=== PATIENT | male | born 1940 | race Caucasian/White ===

== ENCOUNTER 2016-10-17 13:27 | Inpatient (IN) | payer MEDICARE, MEDICAID ==
[~2016-10-17] VITALS: Ht 172.7 cm; Wt 53.6 kg
[~2016-10-17 13:27] MED LIST: AMLO2.5T PO; ESCI10TA PO; FERR-89 PO; LEVO500 PO; LISI-660 PO; TRAZ-144 PO
[2016-10-17 13:57] LABS: EOSINOPHILS # (AUTO) 0.09 K/uL (0.00-0.70); EOSINOPHILS % (AUTO) 1.62 % (1.0-6.0); HEMATOCRIT 34.1 % (41-53); HEMOGLOBIN 10.9 g/dL (13.5-17.5); LYMPHOCYTES # (AUTO) 0.9 K/uL (1.0-4.8); LYMPHOCYTES % (AUTO) 15.6 % (22.0-44.0); MEAN CORPUSCULAR HGB CONC 32.1 G/dL (31.0-37.0); MEAN CORPUSCULAR VOLUME 87 fL (80-100); MONOCYTES # (AUTO) 0.5 K/uL (0.1-1.0); MONOCYTES % (AUTO) 8.9 % (2.0-9.0); NEUTROPHILS # (AUTO) 4.3 K/uL (1.8-7.7); NEUTROPHILS % (AUTO) 73.9 % (40.0-70.0); PLATELET COUNT (AUTO) 241 K/uL (150-450); RED BLOOD CELL COUNT(AUTO) 3.91 MIL/uL (4.50-5.90); RED CELL DISTRIBUTION WIDTH 14.1 % (11.5-14.5); WHITE BLOOD COUNT (AUTO) 5.8 K/uL (4.5-11.0)
[2016-10-17 14:08] LABS: ANION GAP 8 mmol/L (8-16); CALCIUM, TOTAL 8.7 mg/dL (8.8-10.5); CARBON DIOXIDE 25 mmol/L (22-29); CHLORIDE 105 mmol/L (98-107); CREATININE 1.39 mg/dL (0.60-1.30); GLOMERULAR FILTR. RATE CALC 50 mL/min (>60); POTASSIUM 4.4 mmol/L (3.5-5.1); SODIUM SERUM 138 mmol/L (136-145); UREA NITROGEN, BLOOD 42 mg/dL (7-18)
[2016-10-17 14:13] LABS: ALANINE AMINOTRANSFERASE 34 U/L (12-78); ALBUMIN 2.7 g/dL (3.4-5.0); ASPARTATE AMINOTRANSFERASE 49 U/L (15-37); BILIRUBIN,TOTAL 0.3 mg/dL (0.1-1.0); TOTAL PROTEIN, SERUM 7.8 g/dL (6.4-8.2)
[2016-10-17] MEDS ORDERED: ZOLPIDEM TARTRATE 10 MG TABLET PO PRN (15:30)
[2016-10-17] MEDS: LORazepam 2 MG TABLET PO PRN ×2 (16:02→21:24)
[2016-10-17] MEDS: HALOPERIDOL 5 MG TABLET PO PRN ×2 (16:02→21:25)
[2016-10-18] MEDS ORDERED: DiphenhydrAMINE HCL 50 MG CAPSULE PO ONE (00:45)
[2016-10-18] MEDS: LORazepam 2 MG TABLET PO PRN ×3 (09:47→22:32)
[2016-10-18] MEDS: HALOPERIDOL 5 MG TABLET PO PRN ×2 (09:47→17:10)
[2016-10-18] MEDS ORDERED: LISI-662 PO (16:25)
[2016-10-18] MEDS ORDERED: AMLO-512 PO (16:25)
[2016-10-18 16:30] VITALS: BP 145/80
[2016-10-18] MEDS ORDERED: INFLUENZA VIRUS VACCINE QVS 2016-17 (3YR+)/PF 60 MCG/0.5 ML SYRINGE IM ONE (16:30)
[2016-10-18 19:24] VITALS: BP 142/85
[2016-10-19 01:56] VITALS: BP 158/88
[2016-10-19 06:21] LABS: GLUCOSE,POINT OF CARE 75 MG/DL (70-110)
[2016-10-19] MEDS ORDERED: ALBUTEROL SULFATE 2.5 MG/0.5 ML NEB SOLUTION NEB PRN (07:00)
[2016-10-19 08:00] VITALS: BP 149/97
[2016-10-19] MEDS ORDERED: OXYGEN THERAPY IH SCH (08:00)
[2016-10-19] MEDS ORDERED: LISINOPRIL 20 MG TABLET PO SCH (09:00)
[2016-10-19] MEDS ORDERED: AmLODIPine BESYLATE 5 MG TABLET PO SCH (09:00)
[2016-10-19] MEDS ORDERED: MULTIVITAMINS WITH IRON TABLET PO SCH (09:00)
== END 2016-10-19 10:04 | disposition short-term general hospital (02) | DRG 885 ==
LOC: EMS 13:29 → EEVIPCON 13:29 → AHU 10-18 14:20 → 3EI 10-18 18:41
PROVIDERS: ADMIT Psychiatry & Neurology Child & Adolescent Psychiatry; ATTEND Psychiatry & Neurology Child & Adolescent Psychiatry
DX: F33.3 Major depressive disorder, recurrent, severe with psychotic symptoms (principal); J18.9 Pneumonia, unspecified organism; R45.851 Suicidal ideations; I42.9 Cardiomyopathy, unspecified; I50.9 Heart failure, unspecified; I11.0 Hypertensive heart disease with heart failure; F15.90 Other stimulant use, unspecified, uncomplicated; F12.90 Cannabis use, unspecified, uncomplicated; F11.90 Opioid use, unspecified, uncomplicated; E78.00 Pure hypercholesterolemia, unspecified; D64.9 Anemia, unspecified; F17.200 Nicotine dependence, unspecified, uncomplicated; S91.309A Unspecified open wound, unspecified foot, initial encounter; Z88.0 Allergy status to penicillin; Z79.899 Other long term (current) drug therapy; X58.XXXA Exposure to other specified factors, initial encounter; Y93.89 Activity, other specified; Y92.89 Other specified places as the place of occurrence of the external cause; Y99.8 Other external cause status
CPT/HCPCS: 71020; 82962; 93005; 93306; 99285; G0480

== ENCOUNTER 2016-10-19 10:00 | Inpatient (IN) | payer OTHER, MEDICAID ==
[~2016-10-19 10:00] MED LIST changes: +AMLO-512 PO; -AMLO2.5T PO; -LEVO500 PO; -LISI-660 PO; +LISI-662 PO
[2016-10-19 10:50] VITALS: BP 148/93
[2016-10-19] MEDS ORDERED: ZOLPIDEM TARTRATE 10 MG TABLET PO PRN (11:00)
[2016-10-19] MEDS ORDERED: ALBUTEROL SULFATE 2.5 MG/0.5 ML NEB SOLUTION NEB PRN (11:00)
[2016-10-19] MEDS ORDERED: LORazepam 2 MG TABLET PO PRN (11:00)
[2016-10-19 11:20] LABS: ABG A-A DIFF O2 94.7 mmHg (10-20.0); ABG BASE EXCESS -5.5 mmol/L (-2.0-3.0); ABG HCO3 20.8 mmol/L (22.0-26.0); ABG OXYHEMOGLOBIN 93.4 % (94.0-100.0); ABG PCO2 27 mmHg (35-45)
[2016-10-19] MEDS ORDERED: HEPARIN SODIUM,PORCINE 5,000 UNITS/ML VIAL SQ SCH (11:45)
[2016-10-19] MEDS ORDERED: ONDANSETRON HCL 4 MG/2 ML VIAL IVP PRN (11:45)
[2016-10-19] MEDS ORDERED: BISACODYL 10 MG RECTAL RECTAL SUPPOSITORY PR PRN (11:45)
[2016-10-19] MEDS ORDERED: MAGNESIUM HYDROXIDE SUSPENSION 30 ML UDCUP PO PRN (11:45)
[2016-10-19] MEDS: FUROSEMIDE 20 MG/2 ML VIAL IVP SCH ×2 (12:02→21:13)
[2016-10-19] MEDS: LORazepam 2 MG/ML VIAL IVP PRN ×3 (12:02→21:39)
[2016-10-19] MEDS ORDERED: *CLINICAL-LEVOFLOXACIN IVPB DOSING CLINICAL ONE ×2 (12:15)
[2016-10-19] MEDS: CARVEDILOL 3.125 MG TABLET PO SCH ×3 (13:00→21:16)
[2016-10-19] MEDS: LEVOFLOXACIN 750 MG/D5% WATER 150 ML IV SCH (13:00)
[2016-10-19] MEDS: IPRATROPIUM BROMIDE 0.5 MG/2.5 ML NEB SOLUTION NEB SCH ×3 (14:35→22:32)
[2016-10-19] MEDS: ALBUTEROL SULFATE 2.5 MG/0.5 ML NEB SOLUTION NEB SCH ×3 (14:35→22:32)
[2016-10-19 14:51] VITALS: BP 136/83
[2016-10-19] MEDS ORDERED: SODIUM CHLORIDE 0.9% 250 ML IV ONE (15:00)
[2016-10-19 15:04] LABS: CALCIUM, TOTAL 8.9 mg/dL (8.8-10.5); CREATINE KINASE MB 14.3 ng/mL (0-5); CREATININE 1.68 mg/dL (0.60-1.30); POTASSIUM 4.6 mmol/L (3.5-5.1)
[2016-10-19] MEDS ORDERED: HEPARIN SODIUM,PORCINE 5,000 UNITS/ML VIAL IVP PRN ×2 (15:45)
[2016-10-19] MEDS ORDERED: HEPARIN SODIUM,PORCINE 5,000 UNITS/ML VIAL IVP ONE (15:45)
[2016-10-19 17:00] VITALS: BP 110/77
[2016-10-19 17:36] LABS: BASOPHILS % (AUTO) 0.2 % (0.0-2.0); EOSINOPHILS % (AUTO) 0 % (1.0-6.0); HEMATOCRIT 25.6 % (41-53); LYMPHOCYTES # (AUTO) 0.6 K/uL (1.0-4.8); MEAN CORPUSCULAR HEMOGLOBIN 27.6 pg (26.0-34.0); MEAN CORPUSCULAR HGB CONC 31.2 G/dL (31.0-37.0); MEAN CORPUSCULAR VOLUME 89 fL (80-100); MONOCYTES # (AUTO) 0.5 K/uL (0.1-1.0); MONOCYTES % (AUTO) 8.6 % (2.0-9.0); NEUTROPHILS # (AUTO) 4.7 K/uL (1.8-7.7); NEUTROPHILS % (AUTO) 81.2 % (40.0-70.0); PLATELET COUNT (AUTO) 182 K/uL (150-450); RED BLOOD CELL COUNT(AUTO) 2.89 MIL/uL (4.50-5.90); RED CELL DISTRIBUTION WIDTH 15.6 % (11.5-14.5); WHITE BLOOD COUNT (AUTO) 5.8 K/uL (4.5-11.0)
[2016-10-19 17:53] LABS: INR 1.4 (0.9-1.1); PROTHROMBIN TIME 14.9 SEC (9.4-11.6)
[2016-10-19] MEDS: HEPARIN SODIUM 25000 UNITS/D5W 250 ML IV PRN (18:48)
[2016-10-19 20:30] VITALS: BP 110/72
[2016-10-19] MEDS: OXYGEN THERAPY IH SCH (21:00)
[2016-10-19] MEDS: AmLODIPine BESYLATE 5 MG TABLET PO SCH ×2 (21:00→21:16)
[2016-10-20] VITALS (7 sets, daily range): BP systolic 110–143; BP diastolic 71–96
[2016-10-20] MEDS: LORazepam 2 MG/ML VIAL IVP PRN ×2 (02:06→06:40)
[2016-10-20] MEDS: ALBUTEROL SULFATE 2.5 MG/0.5 ML NEB SOLUTION NEB SCH ×6 (03:21→22:46)
[2016-10-20] MEDS: IPRATROPIUM BROMIDE 0.5 MG/2.5 ML NEB SOLUTION NEB SCH ×6 (03:21→22:46)
[2016-10-20] MEDS: HALOPERIDOL 5 MG TABLET PO PRN ×3 (03:22→22:57)
[2016-10-20] MEDS: HEPARIN SODIUM 25000 UNITS/D5W 250 ML IV PRN ×2 (04:34→09:32)
[2016-10-20] MEDS ORDERED: 0.9% SODIUM CHLORIDE 10 ML SYRINGE IVP PRN (05:45)
[2016-10-20 06:48] LABS: VITAMIN B12 LEVEL 334 pg/mL (211-911)
[2016-10-20 07:08] LABS: APPEARANCE,URINE CLEAR (CLEAR); GLUCOSE, URINE (UA) NEGATIVE (NEGATIVE); KETONES,URINE NEGATIVE (NEGATIVE); LEUKOCYTE ESTERASE ,URINE NEGATIVE (NEGATIVE); OCCULT BLOOD,URINE MODERATE (NEGATIVE); PH,URINE 5.5 (5.0-8.0); PROTEIN,URINE SEE CONFIRM (NEGATIVE)
[2016-10-20 07:13] LABS: ADD UA MICROSCOPIC YES
[2016-10-20 07:14] LABS: SQUAMOUS EPITHELIAL CELL,UR Few /LPF (None Seen); SULFOSALICYLIC ACID,URINE 2+ (Negative); WBC,URINE 0-2 /HPF (0-5)
[2016-10-20 07:26] LABS: EOSINOPHILS # (AUTO) 0.01 K/uL (0.00-0.70); EOSINOPHILS % (AUTO) 0.06 % (1.0-6.0); HEMATOCRIT 30.8 % (41-53); LYMPHOCYTES % (AUTO) 10.9 % (22.0-44.0); MEAN CORPUSCULAR HEMOGLOBIN 28.3 pg (26.0-34.0); MEAN CORPUSCULAR HGB CONC 32.5 G/dL (31.0-37.0); MEAN CORPUSCULAR VOLUME 87 fL (80-100); MONOCYTES # (AUTO) 0.8 K/uL (0.1-1.0); MONOCYTES % (AUTO) 9.2 % (2.0-9.0); NEUTROPHILS # (AUTO) 6.9 K/uL (1.8-7.7); NEUTROPHILS % (AUTO) 79.8 % (40.0-70.0); PLATELET COUNT (AUTO) 221 K/uL (150-450); RED BLOOD CELL COUNT(AUTO) 3.54 MIL/uL (4.50-5.90); RED CELL DISTRIBUTION WIDTH 15.7 % (11.5-14.5); WHITE BLOOD COUNT (AUTO) 8.7 K/uL (4.5-11.0)
[2016-10-20 07:41] LABS: HEMOGLOBIN A1C 5.9 % (4.5-6.2)
[2016-10-20 07:58] LABS: ALBUMIN 2.3 g/dL (3.4-5.0); BILIRUBIN,TOTAL 0.5 mg/dL (0.1-1.0); CALCIUM, TOTAL 8.5 mg/dL (8.8-10.5); CHOL/HDL RATIO 2.4 (4.2-7.3); CREATININE 1.85 mg/dL (0.60-1.30); MAGNESIUM 2.2 mg/dL (1.80-2.40); POTASSIUM 4.4 mmol/L (3.5-5.1); THYROID STIMULATING HORMONE 4.17 uIU/mL (0.36-3.74); TOTAL PROTEIN, SERUM 6.7 g/dL (6.4-8.2)
[2016-10-20] MEDS: AmLODIPine BESYLATE 5 MG TABLET PO SCH ×2 (08:38→21:00)
[2016-10-20] MEDS: CLOPIDOGREL BISULFATE 75 MG TABLET PO SCH (08:38)
[2016-10-20] MEDS: FUROSEMIDE 20 MG/2 ML VIAL IVP SCH ×2 (08:38→21:00)
[2016-10-20] MEDS: MULTIVITAMINS WITH IRON TABLET PO SCH (08:39)
[2016-10-20] MEDS: PANTOPRAZOLE SODIUM 40 MG/VIAL IVP SCH (08:39)
[2016-10-20] MEDS: OXYGEN THERAPY IH SCH ×2 (08:39→20:58)
[2016-10-20] MEDS ORDERED: LISINOPRIL 20 MG TABLET PO SCH (09:00)
[2016-10-20] MEDS: CARVEDILOL 6.25 MG TABLET PO SCH ×2 (09:17→21:00)
[2016-10-21] MEDS: ALBUTEROL SULFATE 2.5 MG/0.5 ML NEB SOLUTION NEB SCH ×4 (02:31→14:16)
[2016-10-21] MEDS: IPRATROPIUM BROMIDE 0.5 MG/2.5 ML NEB SOLUTION NEB SCH ×6 (02:31→23:59)
[2016-10-21] MEDS: HALOPERIDOL 5 MG TABLET PO PRN ×2 (04:28→08:48)
[2016-10-21 05:20] VITALS: BP 116/74
[2016-10-21] MEDS ORDERED: LORA-192 PO (05:43)
[2016-10-21] MEDS ORDERED: FURO20TA4 PO (05:43)
[2016-10-21] MEDS ORDERED: CARV3.1231 PO (05:43)
[2016-10-21] MEDS ORDERED: HYDR12.530 PO (05:44)
[2016-10-21 06:54] LABS: ALBUMIN 2.4 g/dL (3.4-5.0); BILIRUBIN,TOTAL 0.5 mg/dL (0.1-1.0); CREATININE 1.86 mg/dL (0.60-1.30); MAGNESIUM 2.4 mg/dL (1.80-2.40); PHOSPHORUS 5.4 mg/dL (2.5-4.9); POTASSIUM 4.9 mmol/L (3.5-5.1); TOTAL PROTEIN, SERUM 6.9 g/dL (6.4-8.2)
[2016-10-21 06:55] LABS: EOSINOPHILS % (AUTO) 0.1 % (1.0-6.0); HEMATOCRIT 33.1 % (41-53); HEMOGLOBIN 10.5 g/dL (13.5-17.5); LYMPHOCYTES # (AUTO) 0.4 K/uL (1.0-4.8); LYMPHOCYTES % (AUTO) 5.8 % (22.0-44.0); MEAN CORPUSCULAR HGB CONC 31.8 G/dL (31.0-37.0); MEAN CORPUSCULAR VOLUME 88 fL (80-100); MONOCYTES # (AUTO) 0.4 K/uL (0.1-1.0); NEUTROPHILS # (AUTO) 6.8 K/uL (1.8-7.7); PLATELET COUNT (AUTO) 212 K/uL (150-450); RED BLOOD CELL COUNT(AUTO) 3.77 MIL/uL (4.50-5.90); RED CELL DISTRIBUTION WIDTH 14.8 % (11.5-14.5); WHITE BLOOD COUNT (AUTO) 7.7 K/uL (4.5-11.0)
[2016-10-21 06:57] LABS: NEUTROPHILS % (AUTO) 89.1 % (40.0-70.0)
[2016-10-21 07:05] VITALS: BP 137/59
[2016-10-21] MEDS: OXYGEN THERAPY IH SCH ×2 (07:14→21:04)
[2016-10-21] MEDS: MULTIVITAMINS WITH IRON TABLET PO SCH (08:48)
[2016-10-21] MEDS: CLOPIDOGREL BISULFATE 75 MG TABLET PO SCH (08:48)
[2016-10-21] MEDS: PANTOPRAZOLE SODIUM 40 MG/VIAL IVP SCH (08:48)
[2016-10-21] MEDS: CARVEDILOL 6.25 MG TABLET PO SCH ×2 (08:48→21:05)
[2016-10-21] MEDS: AmLODIPine BESYLATE 5 MG TABLET PO SCH ×2 (08:48→21:05)
[2016-10-21] MEDS: FUROSEMIDE 20 MG/2 ML VIAL IVP SCH ×2 (08:48→21:05)
[2016-10-21 10:17] LABS: HEPATITIS Bs ANTIGEN SCREEN P Negative (Negative); HEPATITIS C AB SCREEN >11.0 s/co ratio (0.0-0.9)
[2016-10-21 11:00] VITALS: BP 100/69
[2016-10-21 15:02] VITALS: BP 116/70
[2016-10-21] MEDS ORDERED: GABAPENTIN 100 MG CAPSULE PO SCH (15:45)
[2016-10-21] MEDS: LEVOFLOXACIN 750 MG/D5% WATER 150 ML IV SCH (16:36)
[2016-10-21 19:47] VITALS: BP 112/64
[2016-10-21 23:52] VITALS: BP 111/65
[2016-10-22] MEDS: HALOPERIDOL 5 MG TABLET PO PRN (01:12)
[2016-10-22] MEDS ORDERED: CILO50TA PO (02:42)
[2016-10-22] MEDS: IPRATROPIUM BROMIDE 0.5 MG/2.5 ML NEB SOLUTION NEB SCH ×6 (03:00→23:00)
[2016-10-22 04:07] VITALS: BP 115/79
[2016-10-22 06:19] LABS: EOSINOPHILS % (AUTO) 0.1 % (1.0-6.0); HEMATOCRIT 31.4 % (41-53); LYMPHOCYTES # (AUTO) 0.7 K/uL (1.0-4.8); LYMPHOCYTES % (AUTO) 9.6 % (22.0-44.0); MEAN CORPUSCULAR HEMOGLOBIN 28.1 pg (26.0-34.0); MEAN CORPUSCULAR HGB CONC 31.9 G/dL (31.0-37.0); MEAN CORPUSCULAR VOLUME 88 fL (80-100); MONOCYTES # (AUTO) 0.5 K/uL (0.1-1.0); MONOCYTES % (AUTO) 6.6 % (2.0-9.0); NEUTROPHILS # (AUTO) 6.2 K/uL (1.8-7.7); NEUTROPHILS % (AUTO) 83.7 % (40.0-70.0); PLATELET COUNT (AUTO) 186 K/uL (150-450); RED BLOOD CELL COUNT(AUTO) 3.57 MIL/uL (4.50-5.90); RED CELL DISTRIBUTION WIDTH 15.3 % (11.5-14.5); WHITE BLOOD COUNT (AUTO) 7.4 K/uL (4.5-11.0)
[2016-10-22] MEDS: OXYGEN THERAPY IH SCH ×2 (07:22→20:33)
[2016-10-22 07:27] VITALS: BP 139/73
[2016-10-22 07:28] LABS: ALBUMIN 2.1 g/dL (3.4-5.0); BILIRUBIN,TOTAL 0.4 mg/dL (0.1-1.0); CALCIUM, TOTAL 8.7 mg/dL (8.8-10.5); CREATINE KINASE MB 6.2 ng/mL (0-5); CREATININE 2.11 mg/dL (0.60-1.30); MAGNESIUM 2.3 mg/dL (1.80-2.40); PHOSPHORUS 5.1 mg/dL (2.5-4.9); POTASSIUM 4.3 mmol/L (3.5-5.1); TOTAL PROTEIN, SERUM 6.4 g/dL (6.4-8.2)
[2016-10-22] MEDS: CLOPIDOGREL BISULFATE 75 MG TABLET PO SCH (08:32)
[2016-10-22] MEDS: CARVEDILOL 6.25 MG TABLET PO SCH ×2 (08:32→20:19)
[2016-10-22] MEDS: PANTOPRAZOLE SODIUM 40 MG/VIAL IVP SCH (08:32)
[2016-10-22] MEDS: MULTIVITAMINS WITH IRON TABLET PO SCH (08:32)
[2016-10-22] MEDS: AmLODIPine BESYLATE 5 MG TABLET PO SCH ×2 (08:32→20:17)
[2016-10-22] MEDS: FUROSEMIDE 20 MG/2 ML VIAL IVP SCH (08:33)
[2016-10-22] MEDS ORDERED: LISINOPRIL 5 MG TABLET PO SCH (09:00)
[2016-10-22 11:18] VITALS: BP 98/56
[2016-10-22 15:42] VITALS: BP 102/65
[2016-10-22 19:36] VITALS: BP 101/53
[2016-10-22 23:17] VITALS: BP 96/59
[2016-10-22 23:34] LABS: APPEARANCE,UNSPUN,BODY FLUID SLIGHTLY CLOUDY (CLEAR)
[2016-10-22 23:35] LABS: COLOR,BODY FLUID YELLOW (LT YELLOW)
[2016-10-22 23:36] LABS: OTHER CELLS,BODY FLUID MACROPHAGES
[2016-10-22 23:37] LABS: PH, BODY FLUID 7
[2016-10-23] MEDS: IPRATROPIUM BROMIDE 0.5 MG/2.5 ML NEB SOLUTION NEB SCH ×6 (03:00→23:00)
[2016-10-23 05:01] VITALS: BP 119/68
[2016-10-23 06:48] LABS: BASOPHILS % (AUTO) 0.1 % (0.0-2.0); EOSINOPHILS % (AUTO) 0.2 % (1.0-6.0); HEMATOCRIT 31.4 % (41-53); HEMOGLOBIN 10.2 g/dL (13.5-17.5); LYMPHOCYTES # (AUTO) 0.7 K/uL (1.0-4.8); LYMPHOCYTES % (AUTO) 8.5 % (22.0-44.0); MEAN CORPUSCULAR HEMOGLOBIN 28.2 pg (26.0-34.0); MEAN CORPUSCULAR HGB CONC 32.4 G/dL (31.0-37.0); MEAN CORPUSCULAR VOLUME 87 fL (80-100); MONOCYTES # (AUTO) 0.5 K/uL (0.1-1.0); MONOCYTES % (AUTO) 6.1 % (2.0-9.0); NEUTROPHILS # (AUTO) 6.7 K/uL (1.8-7.7); NEUTROPHILS % (AUTO) 85.1 % (40.0-70.0); PLATELET COUNT (AUTO) 182 K/uL (150-450); RED BLOOD CELL COUNT(AUTO) 3.61 MIL/uL (4.50-5.90); RED CELL DISTRIBUTION WIDTH 14.8 % (11.5-14.5); WHITE BLOOD COUNT (AUTO) 7.9 K/uL (4.5-11.0)
[2016-10-23 07:20] VITALS: BP 132/72
[2016-10-23 07:38] LABS: ALBUMIN 2.3 g/dL (3.4-5.0); BILIRUBIN,TOTAL 0.4 mg/dL (0.1-1.0); CALCIUM, TOTAL 8.3 mg/dL (8.8-10.5); CREATININE 2.21 mg/dL (0.60-1.30); MAGNESIUM 2.3 mg/dL (1.80-2.40); PHOSPHORUS 4.5 mg/dL (2.5-4.9); TOTAL PROTEIN, SERUM 6.6 g/dL (6.4-8.2)
[2016-10-23] MEDS: OXYGEN THERAPY IH SCH ×2 (08:00→20:00)
[2016-10-23] MEDS: CLOPIDOGREL BISULFATE 75 MG TABLET PO SCH (09:40)
[2016-10-23] MEDS: PANTOPRAZOLE SODIUM 40 MG/VIAL IVP SCH (09:40)
[2016-10-23] MEDS: CARVEDILOL 6.25 MG TABLET PO SCH ×2 (09:40→20:20)
[2016-10-23] MEDS: MULTIVITAMINS WITH IRON TABLET PO SCH (09:41)
[2016-10-23] MEDS: AmLODIPine BESYLATE 5 MG TABLET PO SCH ×2 (09:41→20:19)
[2016-10-23 11:17] VITALS: BP 130/68
[2016-10-23] MEDS: LEVOFLOXACIN 750 MG/D5% WATER 150 ML IV SCH (12:29)
[2016-10-23 16:30] VITALS: BP 139/72
[2016-10-23] MEDS ORDERED: SODIUM CHLORIDE 0.9% 100 ML ONE (20:00)
[2016-10-23] MEDS: ALBUMIN HUMAN 25%-25GM/100ML 100 ML IV SCH (20:19)
[2016-10-23 20:23] VITALS: BP 98/54
[2016-10-24] VITALS: BP 123/73
[2016-10-24] MEDS: IPRATROPIUM BROMIDE 0.5 MG/2.5 ML NEB SOLUTION NEB SCH ×7 (03:00→23:00)
[2016-10-24] MEDS: ALBUMIN HUMAN 25%-25GM/100ML 100 ML IV SCH ×2 (04:32→13:45)
[2016-10-24 05:00] VITALS: BP 129/75
[2016-10-24 07:02] LABS: EOSINOPHILS % (AUTO) 0 % (1.0-6.0); HEMATOCRIT 28.4 % (41-53); HEMOGLOBIN 9.3 g/dL (13.5-17.5); LYMPHOCYTES # (AUTO) 0.4 K/uL (1.0-4.8); LYMPHOCYTES % (AUTO) 4.8 % (22.0-44.0); MEAN CORPUSCULAR HEMOGLOBIN 28.2 pg (26.0-34.0); MEAN CORPUSCULAR HGB CONC 32.7 G/dL (31.0-37.0); MEAN CORPUSCULAR VOLUME 86 fL (80-100); MONOCYTES # (AUTO) 0.4 K/uL (0.1-1.0); MONOCYTES % (AUTO) 5.2 % (2.0-9.0); NEUTROPHILS # (AUTO) 7.2 K/uL (1.8-7.7); PLATELET COUNT (AUTO) 140 K/uL (150-450); RED BLOOD CELL COUNT(AUTO) 3.29 MIL/uL (4.50-5.90); RED CELL DISTRIBUTION WIDTH 14.5 % (11.5-14.5)
[2016-10-24 07:04] LABS: NEUTROPHILS % (AUTO) 90.1 % (40.0-70.0)
[2016-10-24 07:45] VITALS: BP 112/70
[2016-10-24 07:48] LABS: ALBUMIN 3.2 g/dL (3.4-5.0); BILIRUBIN,TOTAL 0.6 mg/dL (0.1-1.0); CALCIUM, TOTAL 8.6 mg/dL (8.8-10.5); CREATININE 1.81 mg/dL (0.60-1.30); MAGNESIUM 2.4 mg/dL (1.80-2.40); POTASSIUM 3.7 mmol/L (3.5-5.1)
[2016-10-24] MEDS: OXYGEN THERAPY IH SCH ×2 (08:00→20:00)
[2016-10-24] MEDS: CARVEDILOL 6.25 MG TABLET PO SCH ×2 (08:13→20:19)
[2016-10-24] MEDS: CLOPIDOGREL BISULFATE 75 MG TABLET PO SCH (08:13)
[2016-10-24] MEDS: MULTIVITAMINS WITH IRON TABLET PO SCH (08:13)
[2016-10-24] MEDS: AmLODIPine BESYLATE 5 MG TABLET PO SCH ×2 (08:13→20:19)
[2016-10-24] MEDS: PANTOPRAZOLE SODIUM 40 MG/VIAL IVP SCH (08:14)
[2016-10-24 11:23] VITALS: BP 117/77
[2016-10-24] MEDS: FUROSEMIDE 20 MG TABLET PO SCH (13:41)
[2016-10-24 17:24] VITALS: BP 129/74
[2016-10-24 20:00] VITALS: BP 122/59
[2016-10-24] MEDS: LORazepam 2 MG/ML VIAL IVP PRN (20:19)
[2016-10-25 00:12] VITALS: BP 110/55
[2016-10-25] MEDS: ALBUMIN HUMAN 25%-25GM/100ML 100 ML IV SCH ×2 (01:12→12:38)
[2016-10-25] MEDS ORDERED: SODIUM CHLORIDE 0.9% 500 ML IV ONE (01:14)
[2016-10-25] MEDS: IPRATROPIUM BROMIDE 0.5 MG/2.5 ML NEB SOLUTION NEB SCH ×4 (03:00→14:34)
[2016-10-25 04:00] VITALS: BP 128/69
[2016-10-25 07:08] LABS: EOSINOPHILS # (AUTO) 0.02 K/uL (0.00-0.70); EOSINOPHILS % (AUTO) 0.26 % (1.0-6.0); HEMATOCRIT 27.4 % (41-53); LYMPHOCYTES # (AUTO) 0.4 K/uL (1.0-4.8); LYMPHOCYTES % (AUTO) 6.1 % (22.0-44.0); MEAN CORPUSCULAR HEMOGLOBIN 28.4 pg (26.0-34.0); MEAN CORPUSCULAR HGB CONC 32.9 G/dL (31.0-37.0); MEAN CORPUSCULAR VOLUME 86 fL (80-100); MONOCYTES # (AUTO) 0.5 K/uL (0.1-1.0); MONOCYTES % (AUTO) 6.3 % (2.0-9.0); NEUTROPHILS # (AUTO) 6.3 K/uL (1.8-7.7); PLATELET COUNT (AUTO) 136 K/uL (150-450); RED BLOOD CELL COUNT(AUTO) 3.18 MIL/uL (4.50-5.90); RED CELL DISTRIBUTION WIDTH 15.5 % (11.5-14.5); WHITE BLOOD COUNT (AUTO) 7.2 K/uL (4.5-11.0)
[2016-10-25 07:19] LABS: ALBUMIN 3.4 g/dL (3.4-5.0); BILIRUBIN,TOTAL 0.6 mg/dL (0.1-1.0); CALCIUM, TOTAL 8.6 mg/dL (8.8-10.5); CREATININE 1.67 mg/dL (0.60-1.30); MAGNESIUM 2.5 mg/dL (1.80-2.40); POTASSIUM 3.8 mmol/L (3.5-5.1); TOTAL PROTEIN, SERUM 6.9 g/dL (6.4-8.2)
[2016-10-25 07:32] LABS: NEUTROPHILS % (AUTO) 87.3 % (40.0-70.0)
[2016-10-25 07:33] LABS: RBC MORPHOLOGY COMMENT ABNORMAL RBC MORPH
[2016-10-25] MEDS: OXYGEN THERAPY IH SCH (08:00)
[2016-10-25] MEDS: FUROSEMIDE 20 MG TABLET PO SCH (09:02)
[2016-10-25] MEDS: CARVEDILOL 6.25 MG TABLET PO SCH (09:02)
[2016-10-25] MEDS: CLOPIDOGREL BISULFATE 75 MG TABLET PO SCH (09:02)
[2016-10-25] MEDS: PANTOPRAZOLE SODIUM 40 MG/VIAL IVP SCH (09:02)
[2016-10-25] MEDS: AmLODIPine BESYLATE 5 MG TABLET PO SCH (09:02)
[2016-10-25] MEDS: MULTIVITAMINS WITH IRON TABLET PO SCH (09:03)
[2016-10-25 09:16] VITALS: BP 131/70
[2016-10-25] MEDS ORDERED: FURO20 PO (10:48)
[2016-10-25] MEDS ORDERED: PANT40TA25 PO (10:49)
[2016-10-25] MEDS ORDERED: CLOP75 PO (10:49)
[2016-10-25] MEDS ORDERED: MULT-700 PO (10:51)
[2016-10-25] MEDS: LEVOFLOXACIN 750 MG/D5% WATER 150 ML IV SCH (11:46)
[2016-10-25 12:05] VITALS: BP 125/69
[2016-10-25 16:04] VITALS: BP 119/68
[2016-10-26 05:18] LABS: COMPLEMENT C3 104 mg/dL (82-167); COMPLEMENT C4 20 mg/dL (14-44)
== END 2016-10-25 18:21 | disposition home or self-care (01) | DRG 280 ==
LOC: 5N 10:00
PROVIDERS: ADMIT Internal Medicine Geriatric Medicine; ATTEND Internal Medicine Geriatric Medicine
PROC: 0W993ZZ Drainage of Right Pleural Cavity, Percutaneous Approach (ICD-10-PCS; principal; 2016-10-22)
DX: I21.4 Non-ST elevation (NSTEMI) myocardial infarction (principal); J18.9 Pneumonia, unspecified organism; I50.21 Acute systolic (congestive) heart failure; J96.01 Acute respiratory failure with hypoxia; G93.40 Encephalopathy, unspecified; N17.9 Acute kidney failure, unspecified; J44.0 Chronic obstructive pulmonary disease with (acute) lower respiratory infection; R45.851 Suicidal ideations; I42.9 Cardiomyopathy, unspecified; I13.0 Hypertensive heart and chronic kidney disease with heart failure and stage 1 through stage 4 chronic kidney disease, or unspecified chronic kidney disease; F33.3 Major depressive disorder, recurrent, severe with psychotic symptoms; I24.9 Acute ischemic heart disease, unspecified; F15.10 Other stimulant abuse, uncomplicated; F25.9 Schizoaffective disorder, unspecified; D64.9 Anemia, unspecified; R31.9 Hematuria, unspecified; N18.9 Chronic kidney disease, unspecified; I34.0 Nonrheumatic mitral (valve) insufficiency; I73.9 Peripheral vascular disease, unspecified; B19.20 Unspecified viral hepatitis C without hepatic coma; F11.90 Opioid use, unspecified, uncomplicated; F12.90 Cannabis use, unspecified, uncomplicated; E88.09 Other disorders of plasma-protein metabolism, not elsewhere classified; F15.90 Other stimulant use, unspecified, uncomplicated; Z88.0 Allergy status to penicillin; Z91.19 Patient's noncompliance with other medical treatment and regimen; Z87.891 Personal history of nicotine dependence; Z79.899 Other long term (current) drug therapy
CPT/HCPCS: 32555; 70450; 71250; 76770; 76942; 80074; 82271; 82306; 82465; 82570; 82607; 82746; 82805; 82945; 83036; 83615; 83735; 83986; 84100; 84156; 84157; 84300; 84439; 84443; 84540; 86160; 86592; 87015; 87070; 87101; 87205; 87389; 88108; 89051; 93005; 93925; 93970; 94640; 97161; C9113; J1644; J1940; J1956; J2060; J7040; J7050; P9046

== ENCOUNTER 2016-10-31 13:27 | Inpatient (IN) | payer OTHER, MEDICAID ==
[~2016-10-31] VITALS: Ht 172.7 cm; Wt 59.6 kg
[~2016-10-31 13:27] MED LIST changes: +CARV3.1231 PO; +CLOP75 PO; -FERR-89 PO; +FURO20 PO; -LISI-662 PO; +MULT-700 PO; +PANT40TA25 PO
[2016-10-31] MEDS ORDERED: AMLO-511 PO (16:29)
[2016-10-31] MEDS ORDERED: CARV6 PO (16:29)
[2016-10-31] MEDS ORDERED: VANCOMYCIN HCL 1 GM/D5% WATER 200 ML IV ONE (16:30)
[2016-10-31] MEDS ORDERED: ACETAMINOPHEN 1000 MG/ISO-OSM 100 ML IV ONE (16:30)
[2016-10-31 17:12] LABS: BASOPHILS # (AUTO) 0.03 K/uL (0.00-0.20); BASOPHILS % (AUTO) 0.5 % (0.0-2.0); EOSINOPHILS # (AUTO) 0.03 K/uL (0.00-0.70); EOSINOPHILS % (AUTO) 0.53 % (1.0-6.0); HEMATOCRIT 32.7 % (41-53); HEMOGLOBIN 10.7 g/dL (13.5-17.5); LYMPHOCYTES # (AUTO) 0.8 K/uL (1.0-4.8); LYMPHOCYTES % (AUTO) 11.8 % (22.0-44.0); MEAN CORPUSCULAR HEMOGLOBIN 27.7 pg (26.0-34.0); MEAN CORPUSCULAR HGB CONC 32.8 G/dL (31.0-37.0); MEAN CORPUSCULAR VOLUME 85 fL (80-100); MONOCYTES # (AUTO) 0.5 K/uL (0.1-1.0); MONOCYTES % (AUTO) 8.3 % (2.0-9.0); NEUTROPHILS # (AUTO) 5.1 K/uL (1.8-7.7); NEUTROPHILS % (AUTO) 78.9 % (40.0-70.0); PLATELET COUNT (AUTO) 201 K/uL (150-450); RED BLOOD CELL COUNT(AUTO) 3.86 MIL/uL (4.50-5.90); RED CELL DISTRIBUTION WIDTH 15.9 % (11.5-14.5); WHITE BLOOD COUNT (AUTO) 6.5 K/uL (4.5-11.0)
[2016-10-31 17:25] LABS: ALANINE AMINOTRANSFERASE 46 U/L (12-78); ALBUMIN 3.1 g/dL (3.4-5.0); ANION GAP 13 mmol/L (8-16); ASPARTATE AMINOTRANSFERASE 52 U/L (15-37); BILIRUBIN,TOTAL 0.6 mg/dL (0.1-1.0); CALCIUM, TOTAL 8.8 mg/dL (8.8-10.5); CARBON DIOXIDE 23 mmol/L (22-29); CHLORIDE 107 mmol/L (98-107); CREATININE 1.11 mg/dL (0.60-1.30); GLOMERULAR FILTR. RATE CALC > 60 mL/min (>60); POTASSIUM 3.5 mmol/L (3.5-5.1); SODIUM SERUM 143 mmol/L (136-145); TOTAL PROTEIN, SERUM 7.7 g/dL (6.4-8.2); UREA NITROGEN, BLOOD 32 mg/dL (7-18)
[2016-10-31] MEDS ORDERED: ZOLPIDEM TARTRATE 10 MG TABLET PO PRN (18:15)
[2016-10-31] MEDS ORDERED: OxyCODONE HCL/ACETAMINOPHEN 5-325 MG TABLET PO PRN (18:15)
[2016-10-31] MEDS ORDERED: *CLINICAL-CEFTAROLINE DOSING CLINICAL ONE (18:15)
[2016-10-31] MEDS ORDERED: ACETAMINOPHEN 325 MG TABLET PO PRN (18:15)
[2016-10-31] MEDS ORDERED: ONDANSETRON HCL 4 MG/2 ML VIAL IVP PRN (18:15)
[2016-10-31 20:45] VITALS: BP 132/65
[2016-10-31] MEDS ORDERED: SODIUM CHLORIDE 0.9% 500 ML IV ONE (21:54)
[2016-10-31] MEDS: CEFTAROLINE 600 MG/D5W 250 ML IV SCH (22:01)
[2016-10-31] MEDS ORDERED: PNEUMOCOCCAL VACCINE POLYVALENT 0.5 ML VIAL [PPSV23] IM ONE (23:45)
[2016-10-31] MEDS ORDERED: INFLUENZA VIRUS VACCINE QVS 2016-17 (3YR+)/PF 60 MCG/0.5 ML SYRINGE IM ONE (23:45)
[2016-11-01] MEDS: HEPARIN SODIUM,PORCINE 5,000 UNITS/ML VIAL SQ SCH ×2 (00:38→08:06)
[2016-11-01 04:37] VITALS: BP 128/65
[2016-11-01] MEDS ORDERED: SODIUM CL IRRIG SOLN BOTTLE 250 ML IRRIG ONE (05:58)
[2016-11-01 06:16] LABS: EOSINOPHILS # (AUTO) 0.04 K/uL (0.00-0.70); EOSINOPHILS % (AUTO) 0.68 % (1.0-6.0); HEMATOCRIT 28.3 % (41-53); HEMOGLOBIN 9.4 g/dL (13.5-17.5); LYMPHOCYTES # (AUTO) 0.9 K/uL (1.0-4.8); LYMPHOCYTES % (AUTO) 15.8 % (22.0-44.0); MEAN CORPUSCULAR HEMOGLOBIN 27.9 pg (26.0-34.0); MEAN CORPUSCULAR HGB CONC 33.1 G/dL (31.0-37.0); MEAN CORPUSCULAR VOLUME 84 fL (80-100); MONOCYTES # (AUTO) 0.4 K/uL (0.1-1.0); MONOCYTES % (AUTO) 7.2 % (2.0-9.0); NEUTROPHILS # (AUTO) 4.4 K/uL (1.8-7.7); NEUTROPHILS % (AUTO) 76.3 % (40.0-70.0); PLATELET COUNT (AUTO) 176 K/uL (150-450); RED BLOOD CELL COUNT(AUTO) 3.35 MIL/uL (4.50-5.90); RED CELL DISTRIBUTION WIDTH 15.8 % (11.5-14.5); WHITE BLOOD COUNT (AUTO) 5.7 K/uL (4.5-11.0)
[2016-11-01 07:02] LABS: ALBUMIN 2.5 g/dL (3.4-5.0); BILIRUBIN,TOTAL 0.6 mg/dL (0.1-1.0); CALCIUM, TOTAL 8.3 mg/dL (8.8-10.5); CREATININE 1.2 mg/dL (0.60-1.30); POTASSIUM 3.3 mmol/L (3.5-5.1); TOTAL PROTEIN, SERUM 6.3 g/dL (6.4-8.2)
[2016-11-01 07:17] VITALS: BP 136/78
[2016-11-01] MEDS: CEFTAROLINE 600 MG/D5W 250 ML IV SCH (08:06)
[2016-11-01] MEDS ORDERED: AmLODIPine BESYLATE 5 MG TABLET PO SCH (09:00)
[2016-11-01] MEDS ORDERED: CLOPIDOGREL BISULFATE 75 MG TABLET PO SCH (09:00)
[2016-11-01] MEDS ORDERED: PANTOPRAZOLE SODIUM 40 MG DR TABLET PO SCH (09:00)
[2016-11-01] MEDS ORDERED: MULTIVITAMINS WITH MINERALS, THERAPEUTIC TABLET PO SCH (09:00)
[2016-11-01] MEDS ORDERED: FUROSEMIDE 20 MG TABLET PO SCH (09:00)
[2016-11-01] MEDS ORDERED: ESCITALOPRAM OXALATE 10 MG TABLET PO SCH (09:00)
[2016-11-01] MEDS ORDERED: CARVEDILOL 6.25 MG TABLET PO SCH (09:00)
[2016-11-01] MEDS ORDERED: TraZODone HCL 50 MG TABLET PO SCH (21:00)
== END 2016-11-01 10:00 | disposition left against medical advice (07) | DRG 603 ==
LOC: EMS 13:29 → 6N 18:13
PROVIDERS: ADMIT Hospitalist; ATTEND Hospitalist
DX: L03.116 Cellulitis of left lower limb (principal); E44.0 Moderate protein-calorie malnutrition; I50.22 Chronic systolic (congestive) heart failure; I42.9 Cardiomyopathy, unspecified; L02.612 Cutaneous abscess of left foot; L02.611 Cutaneous abscess of right foot; J44.9 Chronic obstructive pulmonary disease, unspecified; I73.9 Peripheral vascular disease, unspecified; I34.0 Nonrheumatic mitral (valve) insufficiency; L03.115 Cellulitis of right lower limb; F32.9 Major depressive disorder, single episode, unspecified; I11.0 Hypertensive heart disease with heart failure; I25.10 Atherosclerotic heart disease of native coronary artery without angina pectoris; I25.2 Old myocardial infarction; D63.8 Anemia in other chronic diseases classified elsewhere; F12.10 Cannabis abuse, uncomplicated; F19.10 Other psychoactive substance abuse, uncomplicated; Z88.0 Allergy status to penicillin; Z79.899 Other long term (current) drug therapy; Z79.02 Long term (current) use of antithrombotics/antiplatelets; Z59.0 Homelessness
CPT/HCPCS: 71101; 87070; 87106; 87205; 90471; 96365; 96366; 96375; 99285; J0131; J0712; J1644; J3370; J7040

== ENCOUNTER 2016-11-27 12:03 | Inpatient (IN) | payer MEDICARE, MEDICAID ==
[~2016-11-27] VITALS: Ht 170.2 cm; Wt 48.9 kg
[~2016-11-27 12:03] MED LIST changes: +AMLO-511 PO; -AMLO-512 PO; -CARV3.1231 PO; +CARV6 PO
[2016-11-27 13:14] LABS: ANION GAP 14 mmol/L (8-16); CALCIUM, TOTAL 8.7 mg/dL (8.8-10.5); CARBON DIOXIDE 21 mmol/L (22-29); CHLORIDE 107 mmol/L (98-107); CREATININE 1.54 mg/dL (0.60-1.30); EOSINOPHILS % (AUTO) 0.1 % (1.0-6.0); GLOMERULAR FILTR. RATE CALC 44 mL/min (>60); HEMATOCRIT 33.6 % (41-53); HEMOGLOBIN 10.4 g/dL (13.5-17.5); LYMPHOCYTES # (AUTO) 0.7 K/uL (1.0-4.8); LYMPHOCYTES % (AUTO) 7.8 % (22.0-44.0); MEAN CORPUSCULAR HEMOGLOBIN 26.6 pg (26.0-34.0); MEAN CORPUSCULAR VOLUME 86 fL (80-100); MONOCYTES # (AUTO) 0.7 K/uL (0.1-1.0); MONOCYTES % (AUTO) 7.4 % (2.0-9.0); NEUTROPHILS # (AUTO) 7.4 K/uL (1.8-7.7); NEUTROPHILS % (AUTO) 84.7 % (40.0-70.0); PLATELET COUNT (AUTO) 159 K/uL (150-450); POTASSIUM 3.9 mmol/L (3.5-5.1); RED BLOOD CELL COUNT(AUTO) 3.91 MIL/uL (4.50-5.90); RED CELL DISTRIBUTION WIDTH 18.5 % (11.5-14.5); SODIUM SERUM 142 mmol/L (136-145); UREA NITROGEN, BLOOD 32 mg/dL (7-18); WHITE BLOOD COUNT (AUTO) 8.8 K/uL (4.5-11.0)
[2016-11-27 13:16] LABS: GLUCOSE,POINT OF CARE 88 MG/DL (70-110)
[2016-11-27 13:20] LABS: ALANINE AMINOTRANSFERASE 146 U/L (12-78); ALBUMIN 2.6 g/dL (3.4-5.0); ASPARTATE AMINOTRANSFERASE 163 U/L (15-37); BILIRUBIN,TOTAL 1.7 mg/dL (0.1-1.0); TOTAL PROTEIN, SERUM 7.4 g/dL (6.4-8.2)
[2016-11-27 13:31] LABS: RBC MORPHOLOGY COMMENT ABNORMAL RBC MORPH
[2016-11-27] MEDS ORDERED: ZOLPIDEM TARTRATE 10 MG TABLET PO PRN (14:00)
[2016-11-27] MEDS ORDERED: LORazepam 2 MG TABLET PO PRN (14:00)
[2016-11-27] MEDS ORDERED: HALOPERIDOL 5 MG TABLET PO PRN (14:00)
[2016-11-27 18:57] VITALS: BP 123/64
[2016-11-27 20:00] VITALS: BP 133/64
[2016-11-28 00:01] VITALS: BP 128/82
[2016-11-28 04:00] VITALS: BP 140/70
[2016-11-28 08:03] VITALS: BP 131/73
[2016-11-28] MEDS ORDERED: CLOPIDOGREL BISULFATE 75 MG TABLET PO SCH (09:00)
[2016-11-28] MEDS ORDERED: PANTOPRAZOLE SODIUM 40 MG DR TABLET PO SCH (09:00)
[2016-11-28] MEDS ORDERED: FUROSEMIDE 20 MG TABLET PO SCH (09:00)
[2016-11-28] MEDS ORDERED: BACITRACIN 28.4 GM OINTMENT TP SCH (09:00)
[2016-11-28] MEDS ORDERED: MULTIVITAMINS WITH IRON TABLET PO SCH (09:00)
[2016-11-28] MEDS ORDERED: CARVEDILOL 6.25 MG TABLET PO SCH (09:00)
[2016-11-28] MEDS ORDERED: AmLODIPine BESYLATE 5 MG TABLET PO SCH (09:00)
[2016-11-28] MEDS ORDERED: PNEUMOCOCCAL VACCINE POLYVALENT 0.5 ML VIAL [PPSV23] IM ONE (10:15)
== END 2016-11-28 11:51 | disposition still patient (30) | DRG 885 ==
LOC: EMS 12:05 → B2X 12:56 → B3A 12:56 → B2X 19:15
DX: F33.2 Major depressive disorder, recurrent severe without psychotic features (principal); I13.0 Hypertensive heart and chronic kidney disease with heart failure and stage 1 through stage 4 chronic kidney disease, or unspecified chronic kidney disease; I42.9 Cardiomyopathy, unspecified; N17.9 Acute kidney failure, unspecified; R45.851 Suicidal ideations; I50.22 Chronic systolic (congestive) heart failure; F25.9 Schizoaffective disorder, unspecified; F15.10 Other stimulant abuse, uncomplicated; F12.10 Cannabis abuse, uncomplicated; D64.9 Anemia, unspecified; D69.6 Thrombocytopenia, unspecified; B19.20 Unspecified viral hepatitis C without hepatic coma; I34.0 Nonrheumatic mitral (valve) insufficiency; J44.9 Chronic obstructive pulmonary disease, unspecified; N18.9 Chronic kidney disease, unspecified; Z91.5 Personal history of self-harm; Z79.02 Long term (current) use of antithrombotics/antiplatelets; Z79.899 Other long term (current) drug therapy; Z88.0 Allergy status to penicillin; I25.2 Old myocardial infarction; Z91.19 Patient's noncompliance with other medical treatment and regimen
CPT/HCPCS: 76705; 82962; 99285; G0480

== ENCOUNTER 2016-11-28 09:58 | Inpatient (IN) | payer OTHER, MEDICAID ==
[~2016-11-28] VITALS: Ht 162.6 cm; Wt 55.0 kg
[2016-11-28 10:18] LABS: GLUCOSE,POINT OF CARE 104 MG/DL (70-110)
[2016-11-28] MEDS ORDERED: IPRATROPIUM BROMIDE 0.5 MG/2.5 ML NEB SOLUTION NEB ONE (10:30)
[2016-11-28] MEDS ORDERED: ALBUTEROL SULFATE 2.5 MG/0.5 ML NEB SOLUTION NEB ONE (10:30)
[2016-11-28] MEDS ORDERED: ACETAMINOPHEN 325 MG TABLET PO PRN (10:45)
[2016-11-28] MEDS ORDERED: AZITHROMYCIN 500 MG/NS 250 ML IV SCH (10:45)
[2016-11-28] MEDS ORDERED: BISACODYL 10 MG RECTAL RECTAL SUPPOSITORY PR PRN (10:45)
[2016-11-28] MEDS ORDERED: CefTRIAXone 1 GM/DEXTROSE 50 ML IV SCH (10:45)
[2016-11-28 10:59] LABS: ABG A-A DIFF O2 204.8 mmHg (10-20.0); ABG BASE EXCESS -7.1 mmol/L (-2.0-3.0); ABG HCO3 19.5 mmol/L (22.0-26.0); ABG OXYHEMOGLOBIN 89.9 % (94.0-100.0); ABG PCO2 25 mmHg (35-45); ABG PH 7.454 (7.35-7.450)
[2016-11-28] MEDS: ALBUTEROL SULFATE 2.5 MG/0.5 ML NEB SOLUTION NEB SCH ×4 (11:00→22:58)
[2016-11-28] MEDS: IPRATROPIUM BROMIDE 0.5 MG/2.5 ML NEB SOLUTION NEB SCH ×4 (11:00→22:58)
[2016-11-28] MEDS: FUROSEMIDE 40 MG/4 ML VIAL IVP SCH ×2 (11:08→21:00)
[2016-11-28 11:09] LABS: CALCIUM, TOTAL 9.1 mg/dL (8.8-10.5); CREATININE 1.43 mg/dL (0.60-1.30); POTASSIUM 4.6 mmol/L (3.5-5.1)
[2016-11-28 11:11] LABS: EOSINOPHILS % (AUTO) 0.2 % (1.0-6.0); HEMATOCRIT 36.1 % (41-53); INR 1.6 (0.9-1.1); LYMPHOCYTES # (AUTO) 0.8 K/uL (1.0-4.8); LYMPHOCYTES % (AUTO) 11.8 % (22.0-44.0); MEAN CORPUSCULAR HGB CONC 30.4 G/dL (31.0-37.0); MEAN CORPUSCULAR VOLUME 86 fL (80-100); MONOCYTES # (AUTO) 0.5 K/uL (0.1-1.0); MONOCYTES % (AUTO) 7.7 % (2.0-9.0); NEUTROPHILS # (AUTO) 5.4 K/uL (1.8-7.7); NEUTROPHILS % (AUTO) 80.3 % (40.0-70.0); PROTHROMBIN TIME 17.3 SEC (9.4-11.6); RED BLOOD CELL COUNT(AUTO) 4.22 MIL/uL (4.50-5.90); WHITE BLOOD COUNT (AUTO) 6.7 K/uL (4.5-11.0)
[2016-11-28 11:20] LABS: PLATELET COUNT (AUTO) 150 K/uL (150-450)
[2016-11-28 11:21] LABS: RBC MORPHOLOGY COMMENT ABNORMAL RBC MORPH
[2016-11-28 11:33] LABS: ALBUMIN 2.7 g/dL (3.4-5.0); CREATINE KINASE MB 19.6 ng/mL (0-5); TOTAL PROTEIN, SERUM 7.5 g/dL (6.4-8.2)
[2016-11-28 11:38] LABS: LACTIC ACID 3.4 mmol/L (0.4-2.0)
[2016-11-28] MEDS: ASPIRIN 81 MG EC TABLET PO SCH (11:39)
[2016-11-28] MEDS ORDERED: HEPARIN SODIUM 25000 UNITS/D5W 250 ML IV PRN (12:00)
[2016-11-28] MEDS ORDERED: ETOMIDATE 2 MG/ML 10 ML VIAL IVP ONE ×2 (12:00→14:00)
[2016-11-28] MEDS ORDERED: VECURONIUM BROMIDE 10 MG/VIAL IVP ONE ×2 (12:00→14:00)
[2016-11-28] MEDS ORDERED: ASPIRIN 325 MG EC TABLET PO ONE ×2 (12:15→13:00)
[2016-11-28] MEDS ORDERED: NITROGLYCERIN 2% (1 GM=INCH) PACKET TP ONE (12:15)
[2016-11-28] MEDS ORDERED: HEPARIN SODIUM,PORCINE 5,000 UNITS/ML VIAL IVP PRN ×2 (12:15)
[2016-11-28] MEDS ORDERED: FUROSEMIDE 40 MG/4 ML VIAL IVP ONE (12:15)
[2016-11-28 12:53] LABS: REFLEX LACTIC ACID? YES YES
[2016-11-28 12:56] LABS: APPEARANCE,URINE CLEAR (CLEAR); GLUCOSE, URINE (UA) NEGATIVE (NEGATIVE); KETONES,URINE NEGATIVE (NEGATIVE); LEUKOCYTE ESTERASE ,URINE NEGATIVE (NEGATIVE); OCCULT BLOOD,URINE NEGATIVE (NEGATIVE); PROTEIN,URINE SEE CONFIRM (NEGATIVE)
[2016-11-28 12:59] LABS: RBC,URINE 0-2 /HPF (0-2); SQUAMOUS EPITHELIAL CELL,UR Rare /LPF (None Seen); SULFOSALICYLIC ACID,URINE 1+ (Negative); WBC,URINE None Seen /HPF (0-5)
[2016-11-28] MEDS ORDERED: FUROSEMIDE 20 MG/2 ML VIAL IVP ONE (13:00)
[2016-11-28] MEDS ORDERED: RAPID SEQUENCE KIT [RSI] 1 EACH KIT ONE ×2 (13:57)
[2016-11-28] MEDS ORDERED: SUCCINYLCHOLINE CHLORIDE 20 MG/ML 10 ML VIAL ONE (13:57)
[2016-11-28 16:00] VITALS: BP 124/80
[2016-11-28] MEDS ORDERED: PROPOFOL 1000 MG/ISO-OSM 100 ML IV ONE (16:54)
[2016-11-28 17:40] LABS: ABG A-A DIFF O2 268.2 mmHg (10-20.0); ABG BASE EXCESS -6.4 mmol/L (-2.0-3.0); ABG HCO3 20.3 mmol/L (22.0-26.0); ABG OXYHEMOGLOBIN 98.6 % (94.0-100.0); ABG PCO2 20 mmHg (35-45); ABG PH 7.527 (7.35-7.450); ALLEN TEST, BLOOD GAS Positive; TEMPERATURE, FAHRENHEIT, BG 94.6 FAHREN (96.0-98.6)
[2016-11-28 18:00] VITALS: BP 86/52
[2016-11-28 20:00] VITALS: BP 94/56
[2016-11-28] MEDS ORDERED: SODIUM CHLORIDE 0.9% 500 ML IV ONE (20:00)
[2016-11-28 20:50] VITALS: BP 94/56
[2016-11-28] MEDS ORDERED: HEPARIN SODIUM,PORCINE 5,000 UNITS/ML VIAL SQ SCH (21:00)
[2016-11-28] MEDS: DOCUSATE SODIUM 100 MG CAPSULE PO SCH (21:06)
[2016-11-29] VITALS: BP 90/52
[2016-11-29] MEDS: PROPOFOL 1000 MG/ISO-OSM 100 ML IV PRN ×3 (01:53→20:36)
[2016-11-29] MEDS: ALBUTEROL SULFATE 2.5 MG/0.5 ML NEB SOLUTION NEB SCH ×6 (03:36→23:04)
[2016-11-29] MEDS: IPRATROPIUM BROMIDE 0.5 MG/2.5 ML NEB SOLUTION NEB SCH ×6 (03:37→23:04)
[2016-11-29 04:00] VITALS: BP 91/54
[2016-11-29 05:31] LABS: EOSINOPHILS % (AUTO) 1.3 % (1.0-6.0); HEMATOCRIT 28.7 % (41-53); HEMOGLOBIN 8.9 g/dL (13.5-17.5); LYMPHOCYTES # (AUTO) 0.4 K/uL (1.0-4.8); LYMPHOCYTES % (AUTO) 4.7 % (22.0-44.0); MEAN CORPUSCULAR HEMOGLOBIN 26.1 pg (26.0-34.0); MEAN CORPUSCULAR HGB CONC 30.9 G/dL (31.0-37.0); MEAN CORPUSCULAR VOLUME 84 fL (80-100); MONOCYTES # (AUTO) 0.3 K/uL (0.1-1.0); MONOCYTES % (AUTO) 3.4 % (2.0-9.0); NEUTROPHILS # (AUTO) 7.8 K/uL (1.8-7.7); PLATELET COUNT (AUTO) 111 K/uL (150-450); RED CELL DISTRIBUTION WIDTH 18.1 % (11.5-14.5); WHITE BLOOD COUNT (AUTO) 8.6 K/uL (4.5-11.0)
[2016-11-29 05:44] LABS: NEUTROPHILS % (AUTO) 90.6 % (40.0-70.0)
[2016-11-29 05:56] LABS: CREATININE 1.64 mg/dL (0.60-1.30); POTASSIUM 3.7 mmol/L (3.5-5.1)
[2016-11-29] MEDS ORDERED: HEPARIN SODIUM 25000 UNITS/D5W 250 ML IV PRN (06:39)
[2016-11-29] MEDS ORDERED: HEPARIN SODIUM,PORCINE 5,000 UNITS/ML VIAL IVP PRN ×2 (06:45)
[2016-11-29] MEDS ORDERED: HEPARIN SODIUM,PORCINE 5,000 UNITS/ML VIAL IVP ONE (06:45)
[2016-11-29 07:56] LABS: RBC MORPHOLOGY COMMENT ABNORMAL RBC MORPH
[2016-11-29 08:00] VITALS: BP 100/56
[2016-11-29] MEDS: FUROSEMIDE 40 MG/4 ML VIAL IVP SCH ×2 (09:00→21:30)
[2016-11-29] MEDS ORDERED: SODIUM CHLORIDE 0.9% 500 ML IV ONE (09:15)
[2016-11-29] MEDS: DOCUSATE SODIUM 100 MG CAPSULE PO SCH ×2 (09:30→23:30)
[2016-11-29] MEDS: ASPIRIN 81 MG EC TABLET PO SCH (09:31)
[2016-11-29] MEDS: PANTOPRAZOLE SODIUM 40 MG DR TABLET PO SCH (09:31)
[2016-11-29 10:21] LABS: TEMPERATURE, FAHRENHEIT, BG 98.6 FAHREN (96.0-98.6)
[2016-11-29 10:28] LABS: ABG A-A DIFF O2 91.8 mmHg (10-20.0); ABG BASE EXCESS -7.8 mmol/L (-2.0-3.0); ABG HCO3 19.1 mmol/L (22.0-26.0); ABG OXYHEMOGLOBIN 97.5 % (94.0-100.0); ABG PCO2 26 mmHg (35-45); ABG PH 7.422 (7.35-7.450)
[2016-11-29 10:29] LABS: ALLEN TEST, BLOOD GAS Positive
[2016-11-29] MEDS ORDERED: SODIUM BICARBONATE 75 MEQ in SODIUM CHLORIDE 0.45% 1,000 ML IV SCH (10:30)
[2016-11-29] MEDS ORDERED: DEXTROSE 50%-WATER 25 GM/50 ML SYRINGE IVP ONE ×2 (10:35→10:45)
[2016-11-29] MEDS: AZITHROMYCIN 500 MG/NS 250 ML IV SCH (10:42)
[2016-11-29] MEDS: ALBUMIN HUMAN 25%-25GM/100ML 100 ML IV SCH ×2 (10:43→19:06)
[2016-11-29] MEDS: CefTRIAXone 1 GM/DEXTROSE 50 ML IV SCH (10:43)
[2016-11-29 11:47] LABS: GLUCOSE COMMENT 1 Received Meds; GLUCOSE,POINT OF CARE 68 MG/DL (70-110)
[2016-11-29 12:00] VITALS: BP 99/52
[2016-11-29 12:52] LABS: GLUCOSE,POINT OF CARE 106 MG/DL (70-110)
[2016-11-29] MEDS ORDERED: DOPamine HCL 400 MG/D5%-WATER 250 ML IV PRN (13:30)
[2016-11-29 16:00] VITALS: BP 116/65
[2016-11-29] MEDS ORDERED: 0.9% SODIUM CHLORIDE 10 ML SYRINGE IVP PRN (16:30)
[2016-11-29 20:00] VITALS: BP 122/67
[2016-11-30] VITALS (9 sets, daily range): BP systolic 80–122; BP diastolic 50–74
[2016-11-30] MEDS ORDERED: 0.9% SODIUM CHLORIDE 5 ML NEB SOLUTION NEB ONE (02:37)
[2016-11-30] MEDS: ALBUTEROL SULFATE 2.5 MG/0.5 ML NEB SOLUTION NEB SCH ×6 (02:39→23:14)
[2016-11-30] MEDS: IPRATROPIUM BROMIDE 0.5 MG/2.5 ML NEB SOLUTION NEB SCH ×6 (02:39→23:14)
[2016-11-30] MEDS: ALBUMIN HUMAN 25%-25GM/100ML 100 ML IV SCH ×3 (03:32→19:06)
[2016-11-30 05:40] LABS: BASOPHILS % (AUTO) 0.1 % (0.0-2.0); EOSINOPHILS % (AUTO) 0.6 % (1.0-6.0); HEMATOCRIT 26.9 % (41-53); HEMOGLOBIN 8.4 g/dL (13.5-17.5); LYMPHOCYTES # (AUTO) 0.4 K/uL (1.0-4.8); LYMPHOCYTES % (AUTO) 5.1 % (22.0-44.0); MEAN CORPUSCULAR HEMOGLOBIN 26.2 pg (26.0-34.0); MEAN CORPUSCULAR HGB CONC 31.1 G/dL (31.0-37.0); MEAN CORPUSCULAR VOLUME 84 fL (80-100); MONOCYTES # (AUTO) 0.6 K/uL (0.1-1.0); MONOCYTES % (AUTO) 7.8 % (2.0-9.0); NEUTROPHILS # (AUTO) 6.5 K/uL (1.8-7.7); PLATELET COUNT (AUTO) 114 K/uL (150-450); RED CELL DISTRIBUTION WIDTH 17.8 % (11.5-14.5); WHITE BLOOD COUNT (AUTO) 7.5 K/uL (4.5-11.0)
[2016-11-30 05:58] LABS: NEUTROPHILS % (AUTO) 86.4 % (40.0-70.0)
[2016-11-30 08:41] LABS: RBC MORPHOLOGY COMMENT ABNORMAL RBC MORPH
[2016-11-30 09:20] LABS: CALCIUM, TOTAL 8.1 mg/dL (8.8-10.5); CREATININE 1.88 mg/dL (0.60-1.30)
[2016-11-30 09:23] LABS: POTASSIUM 2.9 mmol/L (3.5-5.1)
[2016-11-30] MEDS ORDERED: POTASSIUM CHL 10 MEQ/WATER 50 ML IV SCH (09:45)
[2016-11-30 09:52] LABS: ABG A-A DIFF O2 54.8 mmHg (10-20.0); ABG BASE EXCESS -0.4 mmol/L (-2.0-3.0); ABG HCO3 24.5 mmol/L (22.0-26.0); ABG OXYHEMOGLOBIN 97.8 % (94.0-100.0); ABG PCO2 31 mmHg (35-45); ABG PH 7.494 (7.35-7.450); TEMPERATURE, FAHRENHEIT, BG 96.9 FAHREN (96.0-98.6)
[2016-11-30 09:53] LABS: ALLEN TEST, BLOOD GAS Positive
[2016-11-30] MEDS: DOCUSATE SODIUM 100 MG CAPSULE PO SCH ×2 (10:02→20:58)
[2016-11-30] MEDS: PANTOPRAZOLE SODIUM 40 MG DR TABLET PO SCH (10:02)
[2016-11-30] MEDS: ASPIRIN 81 MG EC TABLET PO SCH (10:03)
[2016-11-30] MEDS: CefTRIAXone 1 GM/DEXTROSE 50 ML IV SCH (10:03)
[2016-11-30] MEDS: HEPARIN SODIUM,PORCINE 5,000 UNITS/ML VIAL SQ SCH ×2 (11:26→20:54)
[2016-11-30] MEDS: POTASSIUM CHL 10 MEQ/WATER 50 ML IV SCH ×3 (11:27→17:47)
[2016-11-30] MEDS: AZITHROMYCIN 500 MG/NS 250 ML IV SCH (12:36)
[2016-11-30] MEDS ORDERED: NOREPINEPHRINE 4 MG/D5%-WATER 250 ML IV ONE (14:34)
[2016-11-30] MEDS ORDERED: NOREPINEPHRINE 4 MG/D5%-WATER 250 ML IV PRN (15:00)
[2016-11-30] MEDS ORDERED: SODIUM CHLORIDE 0.9% 0 ML IV ONE (17:58)
[2016-11-30] MEDS ORDERED: SODIUM CHLORIDE 0.9% 500 ML IV ONE (17:59)
[2016-12-01] VITALS (9 sets, daily range): BP systolic 98–116; BP diastolic 60–74
[2016-12-01] MEDS ORDERED: SODIUM CHLORIDE 0.9% 250 ML IV ONE (00:52)
[2016-12-01] MEDS: ALBUMIN HUMAN 25%-25GM/100ML 100 ML IV SCH ×3 (00:58→18:20)
[2016-12-01] MEDS: PROPOFOL 1000 MG/ISO-OSM 100 ML IV PRN ×3 (00:58→23:34)
[2016-12-01] MEDS: ALBUTEROL SULFATE 2.5 MG/0.5 ML NEB SOLUTION NEB SCH ×6 (02:58→22:53)
[2016-12-01] MEDS: IPRATROPIUM BROMIDE 0.5 MG/2.5 ML NEB SOLUTION NEB SCH ×6 (02:58→22:53)
[2016-12-01 05:16] LABS: EOSINOPHILS % (AUTO) 0.9 % (1.0-6.0); HEMATOCRIT 26.2 % (41-53); LYMPHOCYTES # (AUTO) 0.4 K/uL (1.0-4.8); LYMPHOCYTES % (AUTO) 4.3 % (22.0-44.0); MEAN CORPUSCULAR HEMOGLOBIN 25.8 pg (26.0-34.0); MEAN CORPUSCULAR HGB CONC 30.5 G/dL (31.0-37.0); MEAN CORPUSCULAR VOLUME 85 fL (80-100); MONOCYTES # (AUTO) 0.5 K/uL (0.1-1.0); NEUTROPHILS # (AUTO) 7.9 K/uL (1.8-7.7); PLATELET COUNT (AUTO) 95 K/uL (150-450); RED CELL DISTRIBUTION WIDTH 18.3 % (11.5-14.5); WHITE BLOOD COUNT (AUTO) 8.9 K/uL (4.5-11.0)
[2016-12-01 05:30] LABS: ALBUMIN 3.4 g/dL (3.4-5.0); BILIRUBIN,TOTAL 0.8 mg/dL (0.1-1.0); CALCIUM, TOTAL 8.3 mg/dL (8.8-10.5); CREATININE 1.98 mg/dL (0.60-1.30); POTASSIUM 4.1 mmol/L (3.5-5.1); TOTAL PROTEIN, SERUM 6.4 g/dL (6.4-8.2)
[2016-12-01 06:36] LABS: NEUTROPHILS % (AUTO) 88.8 % (40.0-70.0)
[2016-12-01 07:35] LABS: COMPLEMENT C3 56 mg/dL (82-167); COMPLEMENT C4 11 mg/dL (14-44)
[2016-12-01 07:44] LABS: RBC MORPHOLOGY COMMENT ABNORMAL RBC MORPH
[2016-12-01] MEDS: DOCUSATE SODIUM 100 MG CAPSULE PO SCH ×2 (08:17→20:55)
[2016-12-01] MEDS: ASPIRIN 81 MG EC TABLET PO SCH (08:18)
[2016-12-01] MEDS: PANTOPRAZOLE SODIUM 40 MG DR TABLET PO SCH (08:18)
[2016-12-01] MEDS: HEPARIN SODIUM,PORCINE 5,000 UNITS/ML VIAL SQ SCH ×2 (08:18→20:56)
[2016-12-01] MEDS: CefTRIAXone 1 GM/DEXTROSE 50 ML IV SCH (10:35)
[2016-12-01] MEDS: AZITHROMYCIN 500 MG/NS 250 ML IV SCH (10:35)
[2016-12-01] MEDS ORDERED: BUMETANIDE 0.25 MG/ML 10 ML VIAL IVP ONE (11:30)
[2016-12-01] MEDS ORDERED: DOPamine HCL 400 MG/D5%-WATER 250 ML IV ONE (12:32)
[2016-12-01 12:34] LABS: TEMPERATURE, FAHRENHEIT, BG 96.8 FAHREN (96.0-98.6)
[2016-12-01] MEDS ORDERED: DOPamine HCL 200 MG/D5%-WATER 250 ML IV PRN (12:45)
[2016-12-01] MEDS ORDERED: DOPamine HCL 400 MG/D5%-WATER 250 ML IV PRN (13:00)
[2016-12-01 13:57] LABS: ABG A-A DIFF O2 134.8 mmHg (10-20.0); ABG BASE EXCESS -4.8 mmol/L (-2.0-3.0); ABG HCO3 21.1 mmol/L (22.0-26.0); ABG OXYHEMOGLOBIN 87.6 % (94.0-100.0); ABG PCO2 25 mmHg (35-45)
[2016-12-01 13:58] LABS: ALLEN TEST, BLOOD GAS Positive
[2016-12-02] VITALS (10 sets, daily range): BP systolic 90–124; BP diastolic 52–60
[2016-12-02] MEDS ORDERED: DAPTOMYCIN 250 MG in SODIUM CHLORIDE 0.9% 50 ML IV SCH ×2
[2016-12-02] MEDS: ALBUTEROL SULFATE 2.5 MG/0.5 ML NEB SOLUTION NEB SCH ×6 (03:07→23:00)
[2016-12-02] MEDS: IPRATROPIUM BROMIDE 0.5 MG/2.5 ML NEB SOLUTION NEB SCH ×6 (03:07→23:00)
[2016-12-02] MEDS: ALBUMIN HUMAN 25%-25GM/100ML 100 ML IV SCH ×3 (04:03→17:29)
[2016-12-02 07:41] LABS: PROCALCITONIN (PCT) 0.36 ng/mL (<0.50)
[2016-12-02] MEDS: LACTOBACILLUS ACIDOPHILUS/BULGARICUS GRANULES PACKET NG SCH ×3 (08:20→21:00)
[2016-12-02] MEDS: ASPIRIN 81 MG EC TABLET PO SCH (08:20)
[2016-12-02] MEDS: PANTOPRAZOLE SODIUM 40 MG DR TABLET PO SCH (08:20)
[2016-12-02] MEDS: DOCUSATE SODIUM 100 MG CAPSULE PO SCH ×2 (08:21→21:00)
[2016-12-02] MEDS: HEPARIN SODIUM,PORCINE 5,000 UNITS/ML VIAL SQ SCH ×2 (08:21→21:00)
[2016-12-02] MEDS ORDERED: MULTIVITAMINS WITH MINERALS, THERAPEUTIC 15 ML UDCUP NG SCH (09:00)
[2016-12-02 10:15] LABS: BASOPHILS % (AUTO) 0.2 % (0.0-2.0); EOSINOPHILS % (AUTO) 0.9 % (1.0-6.0); HEMATOCRIT 25.8 % (41-53); HEMOGLOBIN 7.9 g/dL (13.5-17.5); LYMPHOCYTES # (AUTO) 0.5 K/uL (1.0-4.8); LYMPHOCYTES % (AUTO) 5.4 % (22.0-44.0); MEAN CORPUSCULAR HEMOGLOBIN 25.9 pg (26.0-34.0); MEAN CORPUSCULAR HGB CONC 30.7 G/dL (31.0-37.0); MEAN CORPUSCULAR VOLUME 84 fL (80-100); MONOCYTES # (AUTO) 0.7 K/uL (0.1-1.0); MONOCYTES % (AUTO) 6.8 % (2.0-9.0); NEUTROPHILS # (AUTO) 8.4 K/uL (1.8-7.7); PLATELET COUNT (AUTO) 93 K/uL (150-450); RED BLOOD CELL COUNT(AUTO) 3.06 MIL/uL (4.50-5.90); RED CELL DISTRIBUTION WIDTH 18.1 % (11.5-14.5); WHITE BLOOD COUNT (AUTO) 9.7 K/uL (4.5-11.0)
[2016-12-02 10:16] LABS: NEUTROPHILS % (AUTO) 86.7 % (40.0-70.0)
[2016-12-02] MEDS: PROPOFOL 1000 MG/ISO-OSM 100 ML IV PRN ×2 (10:22→16:51)
[2016-12-02] MEDS: CefTRIAXone 1 GM/DEXTROSE 50 ML IV SCH (10:22)
[2016-12-02] MEDS: AZITHROMYCIN 500 MG/NS 250 ML IV SCH (10:24)
[2016-12-02 10:37] LABS: RBC MORPHOLOGY COMMENT ABNORMAL RBC MORPH
[2016-12-02 10:42] LABS: ALBUMIN 3.4 g/dL (3.4-5.0); BILIRUBIN,TOTAL 0.7 mg/dL (0.1-1.0); CALCIUM, TOTAL 8.4 mg/dL (8.8-10.5); CREATININE 1.78 mg/dL (0.60-1.30); POTASSIUM 4.1 mmol/L (3.5-5.1); TOTAL PROTEIN, SERUM 6.1 g/dL (6.4-8.2)
[2016-12-02] MEDS ORDERED: SODIUM CHLORIDE 0.9% 1,000 ML IV ONE (14:46)
[2016-12-02] MEDS ORDERED: MORPHINE SULFATE 2 MG/ML SYRINGE IVP ONE (21:30)
[2016-12-02] MEDS ORDERED: MORPHINE SULFATE 4 MG/ML SYRINGE IVP ONE (23:15)
[2016-12-04 18:18] LABS: HEPATITIS C RNA PCR log 10 6.114; HEPATITIS C RNA QNT 1300150 IU/mL
== END 2016-12-02 23:20 | disposition expired | DRG 870 ==
LOC: EMS 10:00 → ICU 11:06
PROVIDERS: ADMIT Internal Medicine; ATTEND Internal Medicine
PROC: 0BH17EZ Insertion of Endotracheal Airway into Trachea, Via Natural or Artificial Opening (ICD-10-PCS; principal; 2016-11-28)
PROC: 5A1955Z Respiratory Ventilation, Greater than 96 Consecutive Hours (ICD-10-PCS; 2016-11-28)
DX: A41.9 Sepsis, unspecified organism (principal); J18.9 Pneumonia, unspecified organism; J96.01 Acute respiratory failure with hypoxia; I21.4 Non-ST elevation (NSTEMI) myocardial infarction; E43 Unspecified severe protein-calorie malnutrition; I50.23 Acute on chronic systolic (congestive) heart failure; N17.0 Acute kidney failure with tubular necrosis; I13.0 Hypertensive heart and chronic kidney disease with heart failure and stage 1 through stage 4 chronic kidney disease, or unspecified chronic kidney disease; E87.4 Mixed disorder of acid-base balance; J44.0 Chronic obstructive pulmonary disease with (acute) lower respiratory infection; L03.116 Cellulitis of left lower limb; L03.115 Cellulitis of right lower limb; I25.10 Atherosclerotic heart disease of native coronary artery without angina pectoris; B19.20 Unspecified viral hepatitis C without hepatic coma; D69.6 Thrombocytopenia, unspecified; F19.10 Other psychoactive substance abuse, uncomplicated; R65.20 Severe sepsis without septic shock; I73.9 Peripheral vascular disease, unspecified; I25.5 Ischemic cardiomyopathy; D64.9 Anemia, unspecified; E16.2 Hypoglycemia, unspecified; E86.9 Volume depletion, unspecified; E87.6 Hypokalemia; F10.10 Alcohol abuse, uncomplicated; F15.10 Other stimulant abuse, uncomplicated; F17.210 Nicotine dependence, cigarettes, uncomplicated; F32.9 Major depressive disorder, single episode, unspecified; I08.0 Rheumatic disorders of both mitral and aortic valves; I44.7 Left bundle-branch block, unspecified; N18.9 Chronic kidney disease, unspecified; Z88.0 Allergy status to penicillin; Z91.19 Patient's noncompliance with other medical treatment and regimen; I25.2 Old myocardial infarction; Z86.74 Personal history of sudden cardiac arrest; Z82.49 Family history of ischemic heart disease and other diseases of the circulatory system; Z68.20 Body mass index [BMI] 20.0-20.9, adult
CPT/HCPCS: 31500; 51702; 71250; 82570; 82595; 82805; 82962; 83540; 83550; 83605; 83735; 84100; 84132; 84145; 84156; 84300; 84540; 86160; 87040; 87081; 87324; 87449; 87522; 93005; 93306; 94002; 94003; 94060; 94640; 94660; 96365; 96366; 96368; 96375; 99291; J0330; J0456; J0696; J0878; J1265; J1644; J1940; J2270; J2704; J3480; J3490; J7030; J7040; J7050; P9046